=== PATIENT | female | born 1970 | race Caucasian/White ===

== ENCOUNTER 2016-10-28 11:24 | Emergency (ER) | payer OTHER ==
[~2016-10-28] VITALS: Ht 149.9 cm; Wt 49.9 kg
--- NOTE | 2016-10-28 11:38 | ED SKIN/ALLERGY COMPLAINT ---
History of Present Illness General Chief Complaint: Skin Rash/ Abcess Stated Complaint: SIB DR. KIM FOR ABSCESS Source: patient Exam Limitations: no limitations Vital Signs & Intake/Output Vital Signs & Intake/Output Vital Signs Date Time Temp Pulse Resp B/P Pulse O2 O2 Flow FiO2 Ox Delivery Rate 10/28 1135 98.4 89 18 125/79 99 Room Air Allergies Coded Allergies: venom-honey bee (Severe, ANAPHYLAXIS 10/28/16) NSAIDS (Non-Steroidal Anti-Inflamma (CONTRAINDICATED DUE TO MEDS 10/28/16) Reconcile Medications Aspirin (Aspirin*) 81 MG TAB.CHEW 1 TAB PO DAILY HEART HEALTH (Reported) Atorvastatin Calcium 40 MG TABLET 1 TAB PO QPM CHOLESTEROL (Reported) Clindamycin HCl 150 MG CAPSULE 1 CAP PO TID ANTIBIOTIC, INFECTION (Reported) Clopidogrel Bisulfate (Clopidogrel) 75 MG TABLET 1 TAB PO DAILY BLOOD THINNER (Reported) Famotidine 40 MG TABLET 1 TAB PO DAILY GI (Reported) Hydrocodone/Acetaminophen (Vicodin 5-300 MG Tablet) 5 MG-300 MG TABLET 1 TAB PO Q6 PRN pain Nebivolol HCl (Bystolic) 2.5 MG TABLET 1 TAB PO DAILY HEART (Reported) Pantoprazole Sodium 40 MG TABLET.DR 1 TAB PO DAILY GI (Reported) Triage Note: SIB DR KIM FOR ABCESS TO BUTTOCK AND REQUIRES SURGICAL CONSULT, DR WEINBERG AND ARABELLA ALREADY CONTACTED AND AWARE, ONE WILL SEE PT IN ED. DENIES FEVERS AT HOME. SYMYPTOMS FOR APPROX 1 WEEK. Triage Nurses Notes Reviewed? yes HPI: Patient is a 46-year-old female presents complaining of abscess to her right buttock. Abscess for approximately one week. Patient reports abscess in similar area 20 years ago. Patient was placed on clindamycin by her primary care doctor yesterday with no improvement. Patient was referred to the emergency department today for incision and drainage. Patient's primary care doctor called Dr. Charles. Pain is moderate, worsens with palpation. Denies fevers, chills, nausea, vomiting. (BRENNA MENA) Past History Travel History Traveled to [place] past 21 day No Medical History Any Pertinent Medical History? see below for history Neurological: NONE EENT: NONE Cardiovascular: ME OCTOBER 2015 CARDIAC STENT Respiratory: NONE Gastrointestinal: GERD Hepatic: NONE Renal: NONE Musculoskeletal: OSTEOARTH LUMBAR Psychiatric: NONE Endocrine: NONE Blood Disorders: NONE Cancer(s): NONE ROOFER/Reproductive: NONE Surgical History Surgical History: cardiac stent Psychosocial History What is your primary language [place]ian Tobacco Use: Never used ETOH Use: denies use Illicit Drug Use: denies illicit drug use Family History Hx Contributory? No (BRENNA MENA) Review of Systems Review of Systems Constitutional: Denies: chills, fever. Respiratory: Reports: no symptoms. Cardiovascular: Reports: no symptoms. GI: Denies: nausea, vomiting. Musculoskeletal: Reports: no symptoms. Skin: Reports: see HPI. Neurological/Psychological: Reports: no symptoms. Hematologic/Endocrine: Reports: no symptoms. Immunologic/Allergic: Reports: no symptoms. (BRENNA MENA) Physical Exam Physical Exam General Appearance: well developed/nourished, alert, awake Head: atraumatic, normal appearance Eyes: Bilateral: normal appearance. Ears, Nose, Throat: hearing grossly normal Neck: normal inspection, full range of motion Respiratory: no respiratory distress Rectal: no signs of abscess approaching the rectum. Back: normal inspection, normal range of motion Extremities: normal inspection, normal capillary refill, normal range of motion Neurologic/Psych: awake, alert, oriented x 3, normal gait Skin: abscess right medial superior buttock adjacent to the gluteal cleft. Induration and central fluctuance. Abscess measures approximately 6 cm. (BRENNA MENA) Progress Differential Diagnosis: abscess/cellulitis, pilonidal cyst Plan of Care: Orders Procedure Date/time Status TRUNK AREA CULTURE 10/28 1144 Active Microbiology 10/28 1200 TRUNK: Culture & Sensitivity - RES 10/28 1200 TRUNK: Gram Stain - RES [facility] Gena Negro present throughout exam and I+D Patient comfortable with me performing I+D. Discussed with Dr. Charles: incise and drain, place packing and have patient remove tomorrow. Have patient follow up in the office next week. 10/28/2016 1:42:21 PM: Patient continued to ooze blood from I+D site despite pressure dressings placed. Surgifoam placed in and on wound with improvement and bulky dressing placed 10/28/2016 2:07:57 PM: Wound dressing is clean, no signs of significant continuous bleeding. Burning pain to the area increasing. (BRENNA MENA) Departure Departure Time of Disposition: 1208 Disposition: HOME OR SELF CARE Condition: Stable Clinical Impression Primary Impression: Abscess of buttock, right Referrals: LUIS KINSEY,CHRISTIAN KIM MD,Michael DAILY (PCP/Family) Additional Instructions: Continue taking the Clindamycin as directed. Remove the packing in 24 hours. After you remove the packing then warm soaks or sitz bath for 10 minutes 4-5 times a day. Follow up with Dr. Charles next week for further evaluation, call this afternoon for appointment. Return to the ER if redness spreading, fevers or worsening of symptoms. Departure Forms: Customer Survey General Discharge Information Prescriptions: Current Visit Scripts Hydrocodone/Acetaminophen (Vicodin 5-300 MG Tablet) 1 TAB PO Q6 PRN pain #10 TAB (BRENNA MENA) PA/BREAKER TABLE WORKER Co-Sign Statement Statement: ED Attending supervision documentation- [X] I saw and evaluated the patient. I have also reviewed all the pertinent lab results and diagnostic results. I agree with the findings and the plan of care as documented in the PA's/BREAKER TABLE WORKER's documentation. [] I have reviewed the ED Record and agree with the PA's/BREAKER TABLE WORKER's documentation. [] Additions or exceptions (if any) to the PAs/BREAKER TABLE WORKER's note and plan are summarized below: [] (RITESH VELAZQUEZ,ADAM Bell) Procedures Incision and Drainage Progress: Area prepped with Betadine. 1% lidocaine 6 mL injected. 2 cm incision made using an 11 blade scalpel. Moderate amount of purulent drainage. Blunt dissection using forceps to break up loculations. Irrigated with sterile water. Quarter-inch iodoform gauze packing placed. Well-tolerated by patient (BRENNA MENA)
[2016-10-28] MEDS ORDERED: BYSTOLIC2.5 M1 PO (13:58)
[2016-10-28] MEDS ORDERED: ASPIRIN81 M4 PO (13:58)
[2016-10-28] MEDS ORDERED: CLOPIDOGREL75 M1 PO (13:58)
[2016-10-28] MEDS ORDERED: PANTOPRAZOLE SO40 M1 PO (13:59)
[2016-10-28] MEDS ORDERED: FAMOTIDINE40 M1 PO (13:59)
[2016-10-28] MEDS ORDERED: ATORVASTATIN CA40 M1 PO (13:59)
[2016-10-28] MEDS ORDERED: CLINDAMYCIN HC150 M1 PO (14:00)
[2016-10-28] MEDS ORDERED: VICODIN 5-3001 EACH PO (14:08)
[2016-10-28 15:01] VITALS: BP 115/74
== END 2016-10-28 15:02 ==
LOC: ERH 11:24
DX: L02.31 Cutaneous abscess of buttock (principal)
CPT/HCPCS: 87070; 87205